=== PATIENT | male | born 1950 | race Caucasian/White ===

== ENCOUNTER 2016-09-07 14:17 | Inpatient (IN) | payer OTHER, MEDICARE ==
[2016-09-07] MEDS: Sodium Chloride 0.9% 1,000 ML IV SCH ×2 (16:18→21:12)
[2016-09-07] MEDS ORDERED: Lidocaine 2% Jelly 5 ML Urojet MUCMEM ONE (16:45)
--- NOTE | 2016-09-07 17:02 | US ---
INDICATION: Acute renal insufficiency. ULTRASOUND RENAL COMPLETE: Multiple ultrasonic images revealed the kidneys to measure on the right 12.1 x 6.1 x 7.8 cm, and on the left 11.4 x 5.2 x 5.3 cm. There is hydronephrosis bilaterally, which appears fairly severe. Likely this is on the basis of distal obstructive process such as at the urinary bladder outlet. This should be correlated clinically. Within the renal pelvis on the right, there is echogenic material which does not show blood flow. This may represent blood clots and should be correlated clinically. It is difficult to entirely exclude a neoplastic process; however, since no blood flow is present within it, likely it represents either nonviable tissue or hematoma. CT without and with contrast may certainly be of further diagnostic benefit, as a lobulated appearance of this somewhat echogenic material could represent neoplasia with very low blood flow. The renal cortices appear to be fairly well maintained bilaterally. The urinary bladder was not imaged apparently due to it being empty at the time of the examination. Blood flow at the kidneys is similar bilaterally. IMPRESSION: 1. Hydronephrosis is bilateral and appears fairly severe. 2. Soft tissue mass appears to be present with a lobulated appearance in the right renal pelvis. Neoplasia is difficult to exclude with this appearance, although no interior blood flow was seen. CT examination or possibly MRI may be warranted, depending upon clinical correlation and patients renal status - creatinine and GFR. Report was called to Dr. Tang at 1600 hours, 09/07/2016. [facility]
[2016-09-07] MEDS ORDERED: Non-Formulary Medication 1 Each (Ibuprofen [Advil] 200 MG) PO SCH ×2 (19:30→20:45)
[2016-09-07] MEDS ORDERED: Non-Formulary Medication 1 Each (Ibuprofen [Advil] 200 MG) PO PRN (20:37)
--- NOTE | 2016-09-07 20:56 | PCM.HP ---
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 He is a patient of Dr. Tang and his creatinine has been going up. Dr. Tang believes that he has lower renal retention or obstruction. Patient cannot feel his urination at this time. He is very weak and his doctor is worried about his swallowing. He feels that his swallowing okay. His also concurs as she feeds him slowly and chops up his food really well. - Related Data Allergies/Adverse Reactions: Allergies Allergy/AdvReac Type Severity Reaction Status Date / Time Penicillins Allergy UNKNOWN Verified 06/05/13 08:05 Home Medications: Home Meds Aspirin [Ecotrin] 81 mg PO DAILY PRN 06/05/13 [History] Ibuprofen [Advil] 200 mg PO ASDIRECTED PRN 06/05/13 [History] Sertraline HCl [Zoloft] 100 mg PO DAILY 06/05/13 [History] Ipratropium [place] 1 spray MARLYS BID 09/07/16 [History] Omeprazole [Omeprazole] 20 mg PO BID 09/07/16 [History] Terazosin HCl [Terazosin] 2 mg PO BEDTIME PRN 09/07/16 [History] Past Medical History Cardiovascular History: Reports: High Cholesterol, Hypertension Neurological History: Reports: Other (See Below) (Multiple system atrophy, cerebral ataxia) Psychiatric History: Reports: Depression - Past Surgical History Other HEENT Surgeries/Procedures: Tonsils and adenoids GI Surgical History: Reports: Appendectomy Social & Family History - Family History Family Medical History: Unobtainable H&P Review of Systems - Review of Systems: Review Of Systems: See Below General: Reports: Weakness HEENT: Reports: Other (Unable to speak well) Pulmonary: Reports: No Symptoms Cardiovascular: Reports: No Symptoms Gastrointestinal: Reports: No Symptoms Genitourinary: Reports: Retention. Denies: Dysuria, Pain, Urgency, Hematuria Skin: Reports: No Symptoms Psychiatric: Reports: No Symptoms Neurological: Reports: Trouble Speaking, Difficulty Walking, Weakness, Change in Speech Hematologic/Lymphatic: Reports: No Symptoms Immunologic: Reports: No Symptoms Exam - Exam Exam: See Below - Vital Signs Vital Signs: Last Vital Signs Temp 98.7 F 09/07/16 20:00 Pulse 82 09/07/16 20:00 Resp 18 09/07/16 20:00 BP 136/70 09/07/16 20:00 Pulse Ox 95 09/07/16 20:00 Weight: 216 lb - Exam General: Alert, Oriented, Cooperative HEENT: PERRLA, Hearing Intact, Posterior Pharynx Clear, TMs Clear Neck: Supple, Trachea Midline Lungs: Clear to Auscultation, Normal Respiratory Effort. No: Crackles, Rales, Rhonchi Cardiovascular: Regular Rate, Regular Rhythm, Normal S1, Normal S2. No: Bradycardia, Tachycardia, Systolic Murmur, Diastolic Murmur Abdomen: Normal Bowel Sounds, Soft. No: Peritoneal Signs, Distention, Guarding Back Exam: Normal Inspection Extremities: Other (Slow moving and weak all extremities.) Skin: Warm, Dry, Intact Neurological: Strength Equal Bilateral (But weak), Abnormal Gait. No: Normal Speech Neuro Extensive - Mental Status: Alert, Oriented x3, Normal Mood/Affect, Normal Cognition Neuro Extensive - Motor, Sensory, Reflexes: No: Normal Gait Psychiatric: Alert, Normal Affect, Normal Mood - Patient Data Lab Results last 24 hrs: Urine culture in the clinic is positive for Acetobacter that sensitiveness to Cipro *Q Meaningful Use (ADM) - VTE *Q VTE Criteria *Q: - Stroke *Q Stroke Criteria *Q: - AMI *Q AMI Criteria *Q: - Problem List (1) Acute renal failure SNOMED Code(s): 10892242 ICD Code: N17.9 - ACUTE KIDNEY FAILURE, UNSPECIFIED Status: Acute Current Visit: Yes (2) UTI (urinary tract infection) SNOMED Code(s): 13494368 ICD Code: N39.0 - URINARY TRACT INFECTION, SITE NOT SPECIFIED Status: Acute Current Visit: Yes (3) Multiple system atrophy SNOMED Code(s): 295887517 ICD Code: G23.9 - DEGENERATIVE DISEASE OF BASAL GANGLIA, UNSPECIFIED Status : Acute Current Visit: Yes Problem List Initiated/Reviewed/Updated: Yes Orders Last 24hrs: Active Orders 24 hr Category Date Time Status Bladder Scan [RC] ONETIME Care 09/07/16 14:32 Active Intake and Output [RC] QSHIFT Care 09/07/16 19:16 Active Oxygen Therapy [RC] PRN Care 09/07/16 19:16 Active Up to Chair [RC] ASDIRECTED Care 09/07/16 19:16 Active VTE/DVT Education [RC] Per Unit Routine Care 09/07/16 19:16 Active Vital Signs [RC] Q4H Care 09/07/16 19:16 Active Consult to Breaker Tender [CONS] Routine Cons 09/07/16 14:40 Active MANAGEMENT ENGINEER Evaluation and Treatment [CONS] Routine Cons 09/07/16 14:40 Active Full Liquid Diet [DIET] Diet 09/07/16 Dinner Ordered Mechanical Soft Diet [DIET] Diet 09/08/16 Breakfast Active CBC WITH AUTO DIFF [HEME] AM Lab 09/08/16 05:11 Ordered COMPREHENSIVE METABOLIC PN,CMP [CHEM] AM Lab 09/08/16 05:11 Ordered CULTURE BLOOD [BC] Urgent Lab 09/07/16 19:20 Received CULTURE BLOOD [BC] Urgent Lab 09/07/16 19:30 Received Aspirin [Halfprin] Med 09/08/16 09:00 Active 81 mg PO DAILY Ciprofloxacin [Ciprofloxacin HCl] Med 09/08/16 09:00 Active 250 mg PO DAILY Ibuprofen [Advil] Med 09/07/16 20:37 Pending 200 mg PO Q6H PRN Ipratropium [Atrovent 0.06% Nasal [place]] Med 09/07/16 21:00 Ordered DOSE ml MARLYS BID Omeprazole Med 09/07/16 21:00 Ordered 20 mg PO BID Sertraline [Zoloft] Med 09/08/16 09:00 Active 100 mg PO DAILY Sodium Chloride 0.9% [Normal Saline] 1,000 ml Med 09/07/16 14:45 Active IV ASDIRECTED Terazosin [Hytrin] Med 09/07/16 20:37 Ordered 2 mg PO BEDTIME PRN Blood Culture x2 Reflex Set [OM.PC] Urgent Oth 09/07/16 19:16 Ordered Resuscitation Status Routine Resus Stat 09/07/16 19:16 Ordered Medication Orders Aspirin (Halfprin) 81 mg PO DAILY JEANMARIE Ciprofloxacin (Ciprofloxacin Hcl) 250 mg PO DAILY JEANMARIE Sodium Chloride (Normal Saline) 1,000 mls @ 150 mls/hr IV ASDIRECTED JEANMARIE Last Admin: 09/07/16 16:18 Dose: 200 mls/hr Ipratropium [place] (Atrovent 0.06% Nasal [place]) ml MARLYS BID JEANMARIE Non-Formulary Medication (Ibuprofen [Advil]) 200 mg PO Q6H PRN PRN Reason: Pain Omeprazole (Omeprazole) 20 mg PO BID JEANMARIE Sertraline HCl (Zoloft) 100 mg PO DAILY JEANMARIE Terazosin HCl (Hytrin) 2 mg PO BEDTIME PRN PRN Reason: Insomnia Assessment/Plan Comment:: 1. Check residual urine. 2. If it's Elevated place Chavez catheter. 3. Renal ultrasound. 4. Clear liquids. 5. Swallowing study. 6. Discussed living will. He was DNR/DNI. 7. Recheck renal function and CBC in the a.m.
[2016-09-07] MEDS ORDERED: atorvaSTATin 40 MG Tab PO SCH (21:00)
[2016-09-07] MEDS: Omeprazole 20 MG Cap.CR PO SCH (21:24)
[2016-09-07] MEDS: Ipratropium 0.06% Nasal Spray 15 ML Bottle NAS SCH (22:29)
[2016-09-08] MEDS: Sodium Chloride 0.9% 1,000 ML IV SCH (05:16)
[2016-09-08] MEDS: Omeprazole 20 MG Cap.CR PO SCH ×2 (06:40→17:38)
[2016-09-08] MEDS: Ciprofloxacin 250 MG Tab PO SCH (08:53)
[2016-09-08] MEDS: Sertraline 100 MG Tab PO SCH (08:53)
[2016-09-08] MEDS: Ipratropium 0.06% Nasal Spray 15 ML Bottle NAS SCH ×2 (08:53→20:41)
[2016-09-08] MEDS ORDERED: DHA PO SCH (09:00)
[2016-09-08] MEDS ORDERED: Non-Formulary Medication 1 Each (Multivitamin With Minerals [Multiple Vitamin] 1 TAB) PO SCH (09:00)
[2016-09-08] MEDS ORDERED: Non-Formulary Medication 1 Each (Cinnamon Bark [Cinnamon] 500 MG) PO SCH (09:00)
[2016-09-08] MEDS ORDERED: OMEGA PO SCH (09:00)
[2016-09-08] MEDS ORDERED: Cyanocobalamin (Vitamin B12) 1,000 MCG Tab PO SCH (09:00)
[2016-09-08] MEDS ORDERED: EPA PO SCH (09:00)
[2016-09-08] MEDS ORDERED: Aspirin 81 MG Tab.EC PO SCH (09:00)
[2016-09-08] MEDS ORDERED: FISH OIL PO SCH (09:00)
[2016-09-08] MEDS ORDERED: SAW PALMETTO 1000 MG PO SCH (09:00)
[2016-09-08] MEDS ORDERED: [UNRECOGNIZED DRUG - OTHER] PO SCH (09:00)
[2016-09-08] MEDS ORDERED: LUTEIN PO SCH (09:00)
[2016-09-08] MEDS: Dextrose 5%-0.45% NaCl 1,000 ML IV SCH ×2 (09:11→17:14)
--- NOTE | 2016-09-08 09:15 | PCM.PN ---
- General Info Date of Service: 09/08/16 Admission Dx/Problem (Free Text): Patient has no complaints today. He denies chest pain, fevers, chills, abdominal pain. - Patient Data Vitals - most recent: Last Vital Signs Temp 97.8 F 09/08/16 04:00 Pulse 84 09/08/16 04:00 Resp 18 09/08/16 04:00 BP 120/60 09/08/16 04:00 Pulse Ox 96 09/08/16 04:00 Weight - most recent: 152 lb 12.8 oz I&O - last 24 hours: Intake & Output 09/07/16 09/08/16 09/08/16 22:59 06:59 14:59 Intake Total 1775 1175 Output Total 2800 1800 Balance -1025 -625 Lab Results last 24 hrs: Laboratory Results - last 24 hr 09/08/16 09/08/16 Range/Units 06:10 06:10 WBC 8.0 (4.5-12.0) X10-3/uL RBC 3.20 L (4.30-5.75) x10(6)uL Hgb 9.1 L (11.5-15.5) g/dL Hct 26.7 L (30.0-51.3) % MCV 83.3 (80-96) fL MCH 28.3 (27.7-33.6) pg MCHC 34.0 (32.2-35.4) g/dL RDW 12.3 (11.5-15.5) % Plt Count 477 H (125-369) X10(3)uL MPV 6.1 L (7.4-10.4) fL Neut % (Auto) 75.7 (46-82) % Lymph % (Auto) 16.6 (13-37) % [place] % (Auto) 6.3 (4-12) % Eos % (Auto) 1 (1.0-5.0) % Baso % (Auto) 0 (0-2) % Neut # (Auto) 6.1 (1.6-8.3) # Lymph # (Auto) 1.3 (0.6-5.0) # [place] # (Auto) 0.5 (0.0-1.3) # Eos # (Auto) 0.1 (0.0-0.8) # Baso # (Auto) 0.0 (0.0-0.2) # Sodium 135 (135-145) mmol/L Potassium 4.5 (3.5-5.3) mmol/L Chloride 106 (100-110) mmol/L Carbon Dioxide 19 L (23-29) mmol/L BUN 68 H (8-23) mg/dL Creatinine 3.2 H* (0.6-1.3) mg/dL Est Cr Clr Drug Dosing 22.56 mL/min Estimated GFR (MDRD) 20 L (>60) BUN/Creatinine Ratio 21.3 H (9-20) Glucose 96 (80-116) mg/dL Calcium 8.5 L (8.6-10.2) mg/dL Total Bilirubin 0.4 (0.1-1.3) mg/dL AST 10 (5-27) IU/L ALT 18 (14-26) IU/L Alkaline Phosphatase 69 (56-112) IU/L Total Protein 6.2 (6.0-8.0) g/dL Albumin 2.9 L (3.2-4.6) g/dL Globulin 3.3 g/dL Albumin/Globulin Ratio 0.9 Med Orders - Current: Current Medications Aspirin (Halfprin) 81 mg PO DAILY [facility] Last Admin: 09/08/16 08:54 Dose: Not Given Ciprofloxacin (Ciprofloxacin Hcl) 250 mg PO DAILY [facility] Last Admin: 09/08/16 08:53 Dose: 250 mg Dextrose/Sodium Chloride (Dextrose 5%-1/2 Ns) 1,000 mls @ 125 mls/hr IV ASDIRECTED [facility] Last Admin: 09/08/16 09:11 Dose: 125 mls/hr Ipratropium [place] (Atrovent 0.06% Nasal [place]) 0 ml MARLYS BID [facility] Last Admin: 09/08/16 08:53 Dose: 1 spray Omeprazole (Omeprazole) 20 mg PO BIDAC [facility] Last Admin: 09/08/16 06:40 Dose: 20 mg Sertraline HCl (Zoloft) 100 mg PO DAILY [facility] Last Admin: 09/08/16 08:53 Dose: 100 mg Terazosin HCl (Hytrin) 2 mg PO BEDTIME PRN PRN Reason: Other Discontinued Medications Sodium Chloride (Normal Saline) 1,000 mls @ 125 mls/hr IV ASDIRECTED [facility] Last Admin: 09/08/16 05:16 Dose: 125 mls/hr Lidocaine HCl (Xylocaine 2% Jelly) 5 ml MUCMEM ONETIME ONE Stop: 09/07/16 16:46 Last Admin: 09/07/16 16:30 Dose: 5 ml - Exam General: alert, oriented Neck: supple Lungs: Normal respiratory effort Extremities: no edema - Problem List & Annotations (1) Acute renal failure SNOMED Code(s): 80691056 Code(s): N17.9 - ACUTE KIDNEY FAILURE, UNSPECIFIED Status: Acute Current Visit: Yes Annotation/Comment:: Post renal (2) UTI (urinary tract infection) SNOMED Code(s): 74020916 Code(s): N39.0 - URINARY TRACT INFECTION, SITE NOT SPECIFIED Status: Acute Current Visit: Yes (3) Multiple system atrophy SNOMED Code(s): 611511462 Code(s): G23.9 - DEGENERATIVE DISEASE OF BASAL GANGLIA, UNSPECIFIED Status : Acute Current Visit: Yes - Problem List Review Problem List Initiated/Reviewed/Updated: Yes - My Orders Last 24 Hours: My Active Orders 09/07/16 19:16 Intake and Output [RC] 06,14,22 Oxygen Therapy [RC] PRN Up to Chair [RC] ASDIRECTED VTE/DVT Education [RC] Per Unit Routine Vital Signs [RC] Q4H Blood Culture x2 Reflex Set [OM.PC] Urgent Resuscitation Status Routine 09/07/16 19:20 CULTURE BLOOD [BC] Urgent 09/07/16 19:30 CULTURE BLOOD [BC] Urgent 09/07/16 20:37 Terazosin [Hytrin] 2 mg PO BEDTIME PRN 09/07/16 21:00 Ipratropium [Atrovent 0.06% Nasal [place]] 0 ml MARLYS BID Omeprazole 20 mg PO BIDAC 09/08/16 09:00 Aspirin [Halfprin] 81 mg PO DAILY Sertraline [Zoloft] 100 mg PO DAILY 09/08/16 09:15 Dextrose 5%-0.45% NaCl [Dextrose 5%-1/2 NS] 1,000 ml IV ASDIRECTED 09/09/16 06:00 BASIC METABOLIC PANEL,BMP [CHEM] AM - Assessment Assessment:: 1. Continue Cipro 2. Change IV fluids to D5 half normal at 125 mL an hour. 3. BMP in the morning. 4. Patient and his do not want a swallowing study. So we will stop the swallowing study in the continue the soft mechanical diet. - Plan Plan:: 1. Check residual urine. 2. If it's Elevated place Chavez catheter. 3. Renal ultrasound. 4. Clear liquids. 5. Swallowing study. 6. Discussed living will. He was DNR/DNI. 7. Recheck renal function and CBC in the a.m.
[2016-09-08] MEDS ORDERED: Aspirin 81 MG Tab.EC PO PRN (13:56)
[2016-09-09] MEDS: Dextrose 5%-0.45% NaCl 1,000 ML IV SCH (01:16)
[2016-09-09] MEDS: Omeprazole 20 MG Cap.CR PO SCH (06:32)
[2016-09-09] MEDS: Ciprofloxacin 250 MG Tab PO SCH (08:51)
[2016-09-09] MEDS: Ipratropium 0.06% Nasal Spray 15 ML Bottle NAS SCH (08:51)
[2016-09-09] MEDS: Sertraline 100 MG Tab PO SCH (08:51)
--- NOTE | 2016-09-09 09:19 | PCM.PN ---
- General Info Date of Service: 09/09/16 Admission Dx/Problem (Free Text): Patient and his are without concerns. He's feeling better and has more of an appetite. Denies fevers, chills, abdominal pain. - Patient Data Vitals - most recent: Last Vital Signs Temp 98.1 F 09/09/16 05:00 Pulse 79 09/09/16 05:00 Resp 20 09/09/16 05:00 BP 138/65 09/09/16 05:00 Pulse Ox 96 09/09/16 05:00 Weight - most recent: 152 lb 12.8 oz I&O - last 24 hours: Intake & Output 09/08/16 09/09/16 09/09/16 22:59 06:59 14:59 Intake Total 1509 866 100 Output Total 1800 1250 Balance -291 866 -1150 Lab Results last 24 hrs: Laboratory Results - last 24 hr 09/09/16 Range/Units 06:15 Sodium 136 (135-145) mmol/L Potassium 4.3 (3.5-5.3) mmol/L Chloride 107 (100-110) mmol/L Carbon Dioxide 22 L (23-29) mmol/L BUN 50 H D (8-23) mg/dL Creatinine 2.7 H* (0.6-1.3) mg/dL Est Cr Clr Drug Dosing 26.74 mL/min Estimated GFR (MDRD) 24 L (>60) BUN/Creatinine Ratio 18.5 (9-20) Glucose 113 (80-116) mg/dL Calcium 8.6 (8.6-10.2) mg/dL Shankar Results last 24 hrs: Microbiology 09/07/16 19:30 Aerobic Blood Culture - Preliminary Blood - Venous - Lab Draw NO GROWTH AFTER 1 DAY Anaerobic Blood Culture - Preliminary NO GROWTH AFTER 1 DAY 09/07/16 19:20 Aerobic Blood Culture - Preliminary Blood - Venous NO GROWTH AFTER 1 DAY Anaerobic Blood Culture - Preliminary NO GROWTH AFTER 1 DAY Med Orders - Current: Current Medications Aspirin (Halfprin) 81 mg PO DAILY PRN PRN Reason: Pain Ciprofloxacin (Ciprofloxacin Hcl) 250 mg PO DAILY [facility] Last Admin: 09/09/16 08:51 Dose: 250 mg Dextrose/Sodium Chloride (Dextrose 5%-1/2 Ns) 1,000 mls @ 125 mls/hr IV ASDIRECTED [facility] Last Admin: 09/09/16 01:16 Dose: 125 mls/hr Ipratropium [place] (Atrovent 0.06% Nasal [place]) 0 ml MARLYS BID [facility] Last Admin: 09/09/16 08:51 Dose: 1 spray Omeprazole (Omeprazole) 20 mg PO BIDAC [facility] Last Admin: 09/09/16 06:32 Dose: 20 mg Sertraline HCl (Zoloft) 100 mg PO DAILY [facility] Last Admin: 09/09/16 08:51 Dose: 100 mg Terazosin HCl (Hytrin) 2 mg PO BEDTIME [facility] Last Admin: 09/08/16 20:41 Dose: 2 mg Discontinued Medications Aspirin (Halfprin) 81 mg PO DAILY [facility] Last Admin: 09/08/16 08:54 Dose: Not Given Sodium Chloride (Normal Saline) 1,000 mls @ 125 mls/hr IV ASDIRECTED [facility] Last Admin: 09/08/16 05:16 Dose: 125 mls/hr Lidocaine HCl (Xylocaine 2% Jelly) 5 ml MUCMEM ONETIME ONE Stop: 09/07/16 16:46 Last Admin: 09/07/16 16:30 Dose: 5 ml Terazosin HCl (Hytrin) 2 mg PO BEDTIME PRN PRN Reason: Other - Exam General: alert, oriented, severe distress Lungs: Normal respiratory effort Extremities: no edema - Problem List & Annotations (1) Acute renal failure SNOMED Code(s): 70611183 Code(s): N17.9 - ACUTE KIDNEY FAILURE, UNSPECIFIED Status: Acute Current Visit: Yes Annotation/Comment:: Post renal (2) UTI (urinary tract infection) SNOMED Code(s): 24245970 Code(s): N39.0 - URINARY TRACT INFECTION, SITE NOT SPECIFIED Status: Acute Current Visit: Yes (3) Multiple system atrophy SNOMED Code(s): 397955265 Code(s): G23.9 - DEGENERATIVE DISEASE OF BASAL GANGLIA, UNSPECIFIED Status : Acute Current Visit: Yes - Problem List Review Problem List Initiated/Reviewed/Updated: Yes - My Orders Last 24 Hours: My Active Orders 09/08/16 09:00 Sertraline [Zoloft] 100 mg PO DAILY 09/08/16 09:15 Dextrose 5%-0.45% NaCl [Dextrose 5%-1/2 NS] 1,000 ml IV ASDIRECTED 09/08/16 13:56 Aspirin [Halfprin] 81 mg PO DAILY PRN 09/08/16 21:00 Terazosin [Hytrin] 2 mg PO BEDTIME - Assessment Assessment:: 1. discharge home with Chavez catheter in place. 2. Recheck with Dr. Moreno or Dr. Moreno or Dr Tang in one week with a panel 8 before the appointment. - Plan Plan:: 1. Check residual urine. 2. If it's Elevated place Chavez catheter. 3. Renal ultrasound. 4. Clear liquids. 5. Swallowing study. 6. Discussed living will. He was DNR/DNI. 7. Recheck renal function and CBC in the a.m.
--- NOTE | 2016-09-09 09:45 | PCM.DCSUM1 ---
Discharge Summary - Hospital Course Free Text/Narrative:: Hospital course-patient had a Chavez catheter placed and had lots of urine. He had residuals of 999 cc on bladder scan before his Chavez was placed. His creatinine dropped the next 2 days #2.7 from 3.8. He felt much better. He had a UTI and was placed on Cipro. He is on a soft mechanical diet. He is a little anemic and he had a little bit hematuria. We'll discharge him home have him come back in one week revisit with a BMP. He'll go home with a Chavez catheter in place. Home health will be ordered also. 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 He is a patient of Dr. Tang and his creatinine has been going up. Dr. Tang believes that he has lower renal retention or obstruction. Patient cannot feel his urination at this time. He is very weak and his doctor is worried about his swallowing. He feels that his swallowing okay. His also concurs as she feeds him slowly and chops up his food really well. - Discharge Data Discharge Date: 09/09/16 Discharge Disposition: Home, W Home Health Agency 06 Condition: Fair - Discharge Diagnosis/Problem(s) (1) Acute renal failure SNOMED Code(s): 36181830 ICD Code: N17.9 - ACUTE KIDNEY FAILURE, UNSPECIFIED Status: Acute Current Visit: Yes Problem Details: Post renal (2) UTI (urinary tract infection) SNOMED Code(s): 02403362 ICD Code: N39.0 - URINARY TRACT INFECTION, SITE NOT SPECIFIED Status: Acute Current Visit: Yes (3) Multiple system atrophy SNOMED Code(s): 352029276 ICD Code: G23.9 - DEGENERATIVE DISEASE OF BASAL GANGLIA, UNSPECIFIED Status : Acute Current Visit: Yes - Patient Summary/Data Consults: Consultations 09/07/16 14:40 Consult to Die Fitter [CONS] Routine Comment: Physician Instructions: Reason for Consult: discharge planning - Patient Instructions Diet: Mechanical Soft Activity, Other: Wheelchair Driving: Do Not Drive Showering/Bathing: May Shower Notify Provider of: Fever, Increased Pain, Nausea and/or Vomiting Other/Special Instructions: 1. Check with Dr. Moreno in 1 week with a panel 8 before the visit. 2. Indwelling Chavez catheter. Please advise patient on catheter care. 3. Urology appointment outpatient. I will make that appointment. 4. Home health for teaching, home safety, medical management after surveillance and teaching. - Discharge Plan Prescriptions/Med Rec: Ciprofloxacin [Ciprofloxacin HCl] 250 mg PO DAILY #16 tablet Home Medications: Home Meds Aspirin [Ecotrin] 81 mg PO DAILY PRN 06/05/13 [History] Ibuprofen [Advil] 200 mg PO Q4H PRN 06/05/13 [History] Sertraline HCl [Zoloft] 100 mg PO DAILY 06/05/13 [History] Ipratropium [place] 1 spray MARLYS BID 09/07/16 [History] Omeprazole 20 mg PO BID 09/07/16 [History] Terazosin HCl [Terazosin] 2 mg PO BEDTIME PRN 09/07/16 [History] Ciprofloxacin [Ciprofloxacin HCl] 250 mg PO DAILY #16 tablet 09/09/16 [Rx] - Discharge Summary/Plan Comment DC Time >30 min.: No - Patient Data Vitals - Most Recent: Last Vital Signs Temp 98.1 F 09/09/16 05:00 Pulse 79 09/09/16 05:00 Resp 20 09/09/16 05:00 BP 138/65 09/09/16 05:00 Pulse Ox 96 09/09/16 05:00 Weight - Most Recent: 152 lb 12.8 oz I&O - Last 24 hours: Intake & Output 09/08/16 09/09/16 09/09/16 22:59 06:59 14:59 Intake Total 1509 866 100 Output Total 1800 1250 Balance -291 866 -1150 Lab Results - Last 24 hrs: Laboratory Results - last 24 hr 09/09/16 Range/Units 06:15 Sodium 136 (135-145) mmol/L Potassium 4.3 (3.5-5.3) mmol/L Chloride 107 (100-110) mmol/L Carbon Dioxide 22 L (23-29) mmol/L BUN 50 H D (8-23) mg/dL Creatinine 2.7 H* (0.6-1.3) mg/dL Est Cr Clr Drug Dosing 26.74 mL/min Estimated GFR (MDRD) 24 L (>60) BUN/Creatinine Ratio 18.5 (9-20) Glucose 113 (80-116) mg/dL Calcium 8.6 (8.6-10.2) mg/dL MICHAEL Results - Last 24 hrs: Microbiology 09/07/16 19:30 Aerobic Blood Culture - Preliminary Blood - Venous - Lab Draw NO GROWTH AFTER 1 DAY Anaerobic Blood Culture - Preliminary NO GROWTH AFTER 1 DAY 09/07/16 19:20 Aerobic Blood Culture - Preliminary Blood - Venous NO GROWTH AFTER 1 DAY Anaerobic Blood Culture - Preliminary NO GROWTH AFTER 1 DAY Med Orders - Current: Current Medications Aspirin (Halfprin) 81 mg PO DAILY PRN PRN Reason: Pain Ciprofloxacin (Ciprofloxacin Hcl) 250 mg PO DAILY [facility] Last Admin: 09/09/16 08:51 Dose: 250 mg Dextrose/Sodium Chloride (Dextrose 5%-1/2 Ns) 1,000 mls @ 125 mls/hr IV ASDIRECTED [facility] Last Admin: 09/09/16 01:16 Dose: 125 mls/hr Ipratropium [place] (Atrovent 0.06% Nasal [place]) 0 ml MARLYS BID [facility] Last Admin: 09/09/16 08:51 Dose: 1 spray Omeprazole (Omeprazole) 20 mg PO BIDAC [facility] Last Admin: 09/09/16 06:32 Dose: 20 mg Sertraline HCl (Zoloft) 100 mg PO DAILY [facility] Last Admin: 09/09/16 08:51 Dose: 100 mg Terazosin HCl (Hytrin) 2 mg PO BEDTIME [facility] Last Admin: 09/08/16 20:41 Dose: 2 mg Discontinued Medications Aspirin (Halfprin) 81 mg PO DAILY [facility] Last Admin: 09/08/16 08:54 Dose: Not Given Sodium Chloride (Normal Saline) 1,000 mls @ 125 mls/hr IV ASDIRECTED [facility] Last Admin: 09/08/16 05:16 Dose: 125 mls/hr Lidocaine HCl (Xylocaine 2% Jelly) 5 ml MUCMEM ONETIME ONE Stop: 09/07/16 16:46 Last Admin: 09/07/16 16:30 Dose: 5 ml Terazosin HCl (Hytrin) 2 mg PO BEDTIME PRN PRN Reason: Other *Q Meaningful Use (DIS) - VTE *Q VTE Criteria *Q: - Stroke *Q Stroke Criteria *Q: - AMI *Q AMI Criteria *Q:
[2016-09-09 11:17] VITALS: BP 114/59
== END 2016-09-09 13:50 | disposition home health service (06) | DRG 690 ==
LOC: FB.MS 14:46
PROVIDERS: ADMIT Family Medicine; ATTEND Family Medicine
DX: N39.0 Urinary tract infection, site not specified (principal); N17.9 Acute kidney failure, unspecified; G23.9 Degenerative disease of basal ganglia, unspecified; D64.9 Anemia, unspecified; Z79.82 Long term (current) use of aspirin; F32.9 Major depressive disorder, single episode, unspecified; I10 Essential (primary) hypertension; E78.00 Pure hypercholesterolemia, unspecified; Z66 Do not resuscitate; R13.10 Dysphagia, unspecified
CPT/HCPCS: 36415; 76770; 80048; 80053; 85025; 87040; A9270-GY; J7040

== ENCOUNTER 2017-01-04 20:50 | Emergency (ER) | payer OTHER ==
--- NOTE | 2017-01-04 21:47 | EDM.PDOC ---
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 There was blood not only in his replaced suprapubic catheter but also blood coming from his urethra. Pt denies pain, N/V/D, dizziness or any other acute medical issue. Onset: Today Onset Date: 01/04/17 Onset Time: 15:00 Duration: Hour(s): - Related Data Allergies Allergy/AdvReac Type Severity Reaction Status Date / Time Penicillins Allergy UNKNOWN Verified 01/04/17 21:43 Home Meds: Home Meds Sertraline HCl [Zoloft] 100 mg PO DAILY 06/05/13 [History] Omeprazole 20 mg PO BID 09/07/16 [History] Past Medical History HEENT History: Reports: Other (See Below) Other HEENT History: astigmatism,hypermetropia Cardiovascular History: Reports: High Cholesterol, Hypertension Gastrointestinal History: Reports: GERD Genitourinary History: Reports: Neurogenic Bladder, Urinary Incontinence Musculoskeletal History: Reports: Other (See Below) Other Musculoskeletal History: multi system atrophy Neurological History: Reports: Other (See Below) (Multiple system atrophy, cerebral ataxia) Other Neuro History: multiple system atrophy, cerebellar ataxia, ulnar neuropathy, Parkinsonism, Polyneuropathy Psychiatric History: Reports: Depression - Infectious Disease History Infectious Disease History: Reports: Chicken Pox, Measles, Mumps - Past Surgical History Other HEENT Surgeries/Procedures: Tonsils and adenoids GI Surgical History: Reports: Appendectomy Social & Family History - Family History Family Medical History: Unobtainable - Tobacco Use Smoking Status *Q: Never Smoker - Caffeine Use Caffeine Use: Reports: Coffee - Recreational Drug Use Recreational Drug Use: No ED ROS GENERAL - Review of Systems Review Of Systems: See Below Constitutional: Reports: No Symptoms HEENT: Reports: No Symptoms Respiratory: Reports: No Symptoms Cardiovascular: Reports: No Symptoms Endocrine: Reports: No Symptoms GI/Abdominal: Reports: No Symptoms : Reports: Hematuria (from the suprapubic cather and penis) Musculoskeletal: Reports: Other (generalized athrophy) Skin: Reports: No Symptoms Neurological: Reports: Other (MSA) Psychiatric: Reports: No Symptoms Hematologic/Lymphatic: Reports: No Symptoms Immunologic: Reports: No Symptoms ED EXAM, RENAL/ - Physical Exam Exam: See Below Exam Limited By: Physical Impairment General Appearance: Alert, WD/WN, Thin Eye Exam: Bilateral Eye: Normal Inspection Ears: Normal External Exam Nose: Normal Inspection Throat/Mouth: Normal Inspection Head: Atraumatic Neck: Normal Inspection Respiratory/Chest: No Respiratory Distress, Lungs Clear Cardiovascular: Normal Peripheral Pulses GI/Abdominal: Normal Bowel Sounds (Male) Exam: Deferred Rectal (Males) Exam: Deferred Back Exam: Normal Inspection Extremities: Other (atrophic) Neurological: Alert, CN II-XII Intact, Abnormal Gait Psychiatric: Normal Affect, Normal Mood Skin Exam: Warm Lymphatic: No Adenopathy Course - Vital Signs Text/Narrative:: 66 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 There was blood not only in his replaced suprapubic catheter but also blood coming from his urethra. Pt denies pain, N/V/D, dizziness or any other acute medical issue. Pt dose not take blood thinners. PE: Generalized body atrophy, cachectic with hematuria (penis and suprapubic catheter) Impression: Suprapubic catheter change, hematuria Procedure: The old suprapubic catheter was deflated, the insertion area was irrigated with betediene, vasoline was applied the orifice and the new catheter was inserted under sterile condition without complication. The penile bleeding stopped then. [id number] Dr. Fish, Urologist, [place]: Cause for the bleeding from the Urethra was, most likely- the initial suprapubic catheter was pushed through the prostate and urethra. Now, the new Suprapubic catheter is out of the prostate and Urethra, the bleeding should stop. Transfer to [facility] not indicated. Labs: pending on pt's D/C Reeam: Improved, urine from the new suprapubic cather was clean, hematuria subsided. Plan: D/C with instructions. Last Recorded V/S: Last Vital Signs Temp 36.7 C 01/04/17 20:58 Pulse 76 01/04/17 22:00 Resp 17 01/04/17 22:00 BP 136/76 01/04/17 22:00 Pulse Ox 99 01/04/17 22:00 - Orders/Labs/Meds Labs: Laboratory Tests 01/04/17 01/04/17 01/04/17 Range/Units 22:00 22:00 22:00 WBC 10.8 (4.5-12.0) X10-3/uL RBC 4.23 L (4.30-5.75) x10(6)uL Hgb 12.0 (11.5-15.5) g/dL Hct 35.6 (30.0-51.3) % MCV 84.3 (80-96) fL MCH 28.5 (27.7-33.6) pg MCHC 33.8 (32.2-35.4) g/dL RDW 13.5 (11.5-15.5) % Plt Count 214 (125-369) X10(3)uL MPV 7.7 (7.4-10.4) fL Neut % (Auto) 65.0 (46-82) % Lymph % (Auto) 18.1 (13-37) % [place] % (Auto) 7.7 (4-12) % Eos % (Auto) 9 H (1.0-5.0) % Baso % (Auto) 0 (0-2) % Neut # (Auto) 7.1 (1.6-8.3) # Lymph # (Auto) 1.9 (0.6-5.0) # [place] # (Auto) 0.8 (0.0-1.3) # Eos # (Auto) 1.0 H (0.0-0.8) # Baso # (Auto) 0.0 (0.0-0.2) # PT 11.3 H (8.7-11.1) INR 1.12 (0.89-1.13) Sodium 136 (135-145) mmol/L Potassium 4.2 (3.5-5.3) mmol/L Chloride 103 (100-110) mmol/L Carbon Dioxide 26 (23-29) mmol/L BUN 39 H (8-23) mg/dL Creatinine 1.8 H (0.6-1.3) mg/dL Est Cr Clr Drug Dosing 39.37 mL/min Estimated GFR (MDRD) 38 L (>60) BUN/Creatinine Ratio 21.7 H (9-20) Glucose 105 (80-116) mg/dL Calcium 8.9 (8.6-10.2) mg/dL Urine Color (YELLOW) Urine Appearance (CLEAR) Urine pH (5.0-6.5) Ur Specific [place] (1.010-1.025) Urine Protein (NEGATIVE) mg/dL Urine Glucose (UA) (NEGATIVE) mg/dL Urine Ketones (NEGATIVE) mg/dL Urine Occult Blood (NEGATIVE) Urine Nitrite (NEGATIVE) Urine Bilirubin (NEGATIVE) Urine Urobilinogen (NEGATIVE) mg/dL Ur Leukocyte Esterase (NEGATIVE) 01/04/17 Range/Units 22:20 WBC (4.5-12.0) X10-3/uL RBC (4.30-5.75) x10(6)uL Hgb (11.5-15.5) g/dL Hct (30.0-51.3) % MCV (80-96) fL MCH (27.7-33.6) pg MCHC (32.2-35.4) g/dL RDW (11.5-15.5) % Plt Count (125-369) X10(3)uL MPV (7.4-10.4) fL Neut % (Auto) (46-82) % Lymph % (Auto) (13-37) % [place] % (Auto) (4-12) % Eos % (Auto) (1.0-5.0) % Baso % (Auto) (0-2) % Neut # (Auto) (1.6-8.3) # Lymph # (Auto) (0.6-5.0) # [place] # (Auto) (0.0-1.3) # Eos # (Auto) (0.0-0.8) # Baso # (Auto) (0.0-0.2) # PT (8.7-11.1) INR (0.89-1.13) Sodium (135-145) mmol/L Potassium (3.5-5.3) mmol/L Chloride (100-110) mmol/L Carbon Dioxide (23-29) mmol/L BUN (8-23) mg/dL Creatinine (0.6-1.3) mg/dL Est Cr Clr Drug Dosing mL/min Estimated GFR (MDRD) (>60) BUN/Creatinine Ratio (9-20) Glucose (80-116) mg/dL Calcium (8.6-10.2) mg/dL Urine Color Yellow (YELLOW) Urine Appearance Slightly cloudy (CLEAR) Urine pH 6.0 (5.0-6.5) Ur Specific [place] 1.015 (1.010-1.025) Urine Protein 30 H (NEGATIVE) mg/dL Urine Glucose (UA) Normal (NEGATIVE) mg/dL Urine Ketones Negative (NEGATIVE) mg/dL Urine Occult Blood Large H (NEGATIVE) Urine Nitrite Negative (NEGATIVE) Urine Bilirubin Negative (NEGATIVE) Urine Urobilinogen Normal (NEGATIVE) mg/dL Ur Leukocyte Esterase Large H (NEGATIVE) Departure - Departure Time of Disposition: 22:13 Disposition: Home, Self-Care 01 Condition: Good Clinical Impression: Multisystem disorder Suprapubic catheter dysfunction Qualifiers: Encounter type: sequela Qualified Code(s): T83.010S - Breakdown (mechanical) of cystostomy catheter, sequela - Discharge Information Instructions: Suprapubic Catheter Replacement, Suprapubic Catheter Replacement , Care After, Suprapubic Catheter Home Guide Referrals: Junior Moreno MD [Primary Care Provider] - Forms: ED Department Discharge Additional Instructions: Please f/u with your PMD, come back to the ed if your symptoms get worse acutely.
[2017-01-04 22:45] VITALS: BP 136/76
== END 2017-01-04 22:27 | disposition home or self-care (01) ==
LOC: FB.ED 20:50
DX: T83.010 Breakdown (mechanical) of cystostomy catheter (principal); G90.3 Multi-system degeneration of the autonomic nervous system; E78.00 Pure hypercholesterolemia, unspecified; I10 Essential (primary) hypertension; K21.9 Gastro-esophageal reflux disease without esophagitis; F32.9 Major depressive disorder, single episode, unspecified; Z90.49 Acquired absence of other specified parts of digestive tract; Z88.0 Allergy status to penicillin; Z79.899 Other long term (current) drug therapy
CPT/HCPCS: 36415; 51702; 51705; 80048; 81003; 85025; 85610; 99283

== ENCOUNTER 2018-10-18 16:31 | Inpatient (IN) | payer OTHER, MEDICARE ==
[2018-10-18] MEDS ORDERED: Levofloxacin/Dextrose 5%-Water 750 MG in Premix Bag 1 BAG IV SCH (17:30)
[2018-10-18] MEDS: Sodium Chloride 0.9% 1,000 ML IV SCH ×2 (17:47→22:47)
[2018-10-18] MEDS ORDERED: Acetaminophen 325 MG Tab PO PRN (19:43)
--- NOTE | 2018-10-18 22:32 | EDM.PDOC ---
ED HPI GENERAL MEDICAL PROBLEM - General Chief Complaint: General Stated Complaint: PNEUMONIA Time Seen by Provider: 10/18/18 16:55 Source of Information: Reports: Patient, Family, Old Records History Limitations: Reports: Physical Impairment - History of Present Illness INITIAL COMMENTS - FREE TEXT/NARRATIVE: patient sent over from clinic with concern for hypoxia, decreased appetite, crackles in lungs. Hx multiple system atrophy, wheelchair bound, has suprapubic catheter. he is able to answer questions yes or no with thumbs-up and comes down but doesn't have a lot of other communication. is present and reports that yesterday around noon he started feeling unwell. She states that she and her daughter have both recently have some colds and so she gave a day to see if he would improve. He normally has some stridor with multiple system atrophy, but it didn't seem much worse today. Also she noticed some extra wheeze when she heard him breathing. She reports that he has not really had no appetite since yesterday, worse he normally eats everything. She has not noticed any fever, although there was report that he was maybe a little bit febrile over at the clinic, no official high temp was reported. He was found to be hypoxic to 88% over the clinic. Patient has not have had any abdominal pain, nausea or vomiting, back or flank pain. He has an indwelling suprapubic catheter which is likely colonized but has not had any pain around the site nor has a foul smell been noticed to his urine. His reports that she has not gotten any complaint that he is lightheaded or dizzy and he seems to be able to sit up without difficulty. - Related Data Allergies Allergy/AdvReac Type Severity Reaction Status Date / Time Penicillins Allergy UNKNOWN Verified 10/18/18 17:55 Home Meds: Home Meds Sertraline HCl [Zoloft] 100 mg PO DAILY 06/05/13 [History] Ipratropium [Atrovent 0.06% Nasal [place]] 2 spray NASBOTH TID 03/08/18 [History] Acetaminophen [Tylenol Extra Strength] 1,000 mg PO BEDTIME PRN 10/18/18 [History ] Past Medical History HEENT History: Reports: Other (See Below) Other HEENT History: Astigmatism. Hypermetropia Cardiovascular History: Reports: High Cholesterol Respiratory History: Reports: Other (See Below) Other Respiratory History: Stridor respiratory pattern. Pneumonia February 2018 and October 2018. Gastrointestinal History: Reports: GERD, Other (See Below) Other Gastrointestinal History: Swallowing problems. Genitourinary History: Reports: Chronic Renal Insuffiency, Neurogenic Bladder, Urinary Incontinence Other Genitourinary History: Suprapubic catheter. 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 Parkinsonism. Polyneuropathy. Psychiatric History: Reports: Depression, Other (See Below) Other Psychiatric History: Takes Sertraline. Endocrine/Metabolic History: Reports: None Hematologic History: Reports: None Immunologic History: Reports: None Oncologic (Cancer) History: Reports: None Dermatologic History: Reports: None - Infectious Disease History Infectious Disease History: Reports: Chicken Pox, Measles, Rubella - Past Surgical History HEENT Surgical History: Reports: Adenoidectomy, Tonsillectomy GI Surgical History: Reports: Appendectomy, Colonoscopy Social & Family History - Family History Family Medical History: Unobtainable - Tobacco Use Smoking Status *Q: Never Smoker Second Hand Smoke Exposure: No - Caffeine Use Caffeine Use: Reports: None - Recreational Drug Use Recreational Drug Use: No - Living Situation & Occupation Living situation: Reports: Occupation: Retired Social History Comment: 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 Has had increasing debility over the last couple of years and follows with a neurologist for multiple system atrophy. 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 (Limited due to patient condition) ED EXAM, GENERAL - Physical Exam Exam: See Below Free Text/Narrative:: Gen.: Alert, no acute or apparent distress. He is immobile and sitting upright in a wheelchair but is able to answer yes or no questions with thumbs up and comes down. tympanic membranes are clear bilaterally with normal light reflex and throat is without erythema, mucous members noted to be slightly dry. He has no obvious cervical lymphadenopathy. lungs have crackles in the left base but no obvious wheezing and he does not appear to be any respiratory distress. Heart is regular rate and rhythm. He has +2 peripheral pulses in both the upper and lower extremities and no lower extremity edema. There are no obvious rashes or wounds. Abdomen is soft and nontender, limited exam due to patient's upright position. Neuro: Very limited mobility, parkinsonian-type features. Course - Vital Signs Text/Narrative:: patient presenting with new hypoxia, not on oxygen at baseline. Exam suspicious for pneumonia, will get chest x-ray and labs. Plan for admission given his multiple comorbidities. IV fluids ordered and chart reviewed. Will plan to start Levaquin iv. urinalysis to be collected from the bag, although will most likely reflect colonization. Review of previous cultures shows that it was also sensitive to Levaquin. Patient does not appear septic Last Recorded V/S: Last Vital Signs Temp 36.6 C 10/18/18 19:30 Pulse 78 10/18/18 19:30 Resp 18 10/18/18 19:30 BP 127/67 10/18/18 19:30 Pulse Ox 98 10/18/18 19:30 - Orders/Labs/Meds Orders: Active Orders 24 hr Category Date Time Status CXR [Chest 1V Frontal] [CR] Stat Exams 10/18/18 17:35 Taken Levofloxacin/Dextrose 5%-Water [Levaquin in D5W 750 MG/ Med 10/18/18 17:30 Active 150 ML] 750 mg Premix Bag 1 bag IV Q24H Sodium Chloride 0.9% [Normal Saline] 1,000 ml Med 10/18/18 17:45 Active IV ASDIRECTED Medication Orders Acetaminophen (Tylenol) 650 mg PO Q4H PRN PRN Reason: Pain (Mild 1-3)/fever Levofloxacin/Dextrose 750 mg/ (Premix) 150 mls @ 100 mls/hr IV Q24H [facility] Last Admin: 10/18/18 17:48 Dose: 100 mls/hr Sodium Chloride (Normal Saline) 1,000 mls @ 150 mls/hr IV ASDIRECTED JEANMARIE Last Admin: 10/18/18 17:47 Dose: 150 mls/hr Labs: Laboratory Tests 10/18/18 10/18/18 10/18/18 Range/Units 17:00 17:00 17:00 WBC 14.6 H (4.5-12.0) X10-3/uL RBC 5.17 (4.30-5.75) x10(6)uL Hgb 15.1 (13.5-17.8) g/dL Hct 44.5 D (30.0-51.3) % MCV 86.0 (80-96) fL MCH 29.2 (27.7-33.6) pg MCHC 33.9 (32.2-35.4) g/dL RDW 13.3 (11.5-15.5) % Plt Count 211 (125-369) X10(3)uL MPV 7.1 L (7.4-10.4) fL Neut % (Auto) 74.7 (46-82) % Lymph % (Auto) 13.8 (13-37) % [place] % (Auto) 8.2 (4-12) % Eos % (Auto) 1 (1.0-5.0) % Baso % (Auto) 2 (0-2) % Neut # (Auto) 10.9 H (1.6-8.3) # Lymph # (Auto) 2.0 (0.6-5.0) # [place] # (Auto) 1.2 (0.0-1.3) # Eos # (Auto) 0.2 (0.0-0.8) # Baso # (Auto) 0.3 H (0.0-0.2) # Sodium 140 (135-145) mmol/L Potassium 4.2 (3.5-5.3) mmol/L Chloride 102 (100-110) mmol/L Carbon Dioxide 24 (21-32) mmol/L BUN 30 H (7-18) mg/dL Creatinine 1.8 H (0.70-1.30) mg/dL Est Cr Clr Drug Dosing TNP Estimated GFR (MDRD) 38 L (>60) BUN/Creatinine Ratio 16.7 (9-20) Glucose 107 (80-116) mg/dL Lactic Acid (0.4-2.2) mmol/L Calcium 9.5 (8.6-10.2) mg/dL Magnesium 2.1 (1.8-2.5) mg/dL Total Bilirubin 0.9 (0.1-1.3) mg/dL AST 15 D (5-25) IU/L ALT 28 D (12-36) U/L Alkaline Phosphatase 94 (56-112) IU/L NT-Pro-B Natriuret Pep (<=125) pg/mL Total Protein 8.6 H (6.0-8.0) g/dL Albumin 4.3 (3.2-4.6) g/dL Globulin 4.3 g/dL Albumin/Globulin Ratio 1.0 10/18/18 10/18/18 Range/Units 17:00 17:00 WBC (4.5-12.0) X10-3/uL RBC (4.30-5.75) x10(6)uL Hgb (13.5-17.8) g/dL Hct (30.0-51.3) % MCV (80-96) fL MCH (27.7-33.6) pg MCHC (32.2-35.4) g/dL RDW (11.5-15.5) % Plt Count (125-369) X10(3)uL MPV (7.4-10.4) fL Neut % (Auto) (46-82) % Lymph % (Auto) (13-37) % [place] % (Auto) (4-12) % Eos % (Auto) (1.0-5.0) % Baso % (Auto) (0-2) % Neut # (Auto) (1.6-8.3) # Lymph # (Auto) (0.6-5.0) # [place] # (Auto) (0.0-1.3) # Eos # (Auto) (0.0-0.8) # Baso # (Auto) (0.0-0.2) # Sodium (135-145) mmol/L Potassium (3.5-5.3) mmol/L Chloride (100-110) mmol/L Carbon Dioxide (21-32) mmol/L BUN (7-18) mg/dL Creatinine (0.70-1.30) mg/dL Est Cr Clr Drug Dosing Estimated GFR (MDRD) (>60) BUN/Creatinine Ratio (9-20) Glucose (80-116) mg/dL Lactic Acid 0.7 (0.4-2.2) mmol/L Calcium (8.6-10.2) mg/dL Magnesium (1.8-2.5) mg/dL Total Bilirubin (0.1-1.3) mg/dL AST (5-25) IU/L ALT (12-36) U/L Alkaline Phosphatase (56-112) IU/L NT-Pro-B Natriuret Pep 389 H (<=125) pg/mL Total Protein (6.0-8.0) g/dL Albumin (3.2-4.6) g/dL Globulin g/dL Albumin/Globulin Ratio Meds: Medications Generic Name Dose Route Start Last Admin Trade Name Freq PRN Reason Stop Dose Admin Acetaminophen 650 mg 10/18/18 19:43 Tylenol PO Q4H PRN Pain (Mild 1-3)/fever Levofloxacin/Dextrose 750 mg/ 150 mls @ 100 mls/hr 10/18/18 17:30 10/18/18 17 :48 Premix IV 100 mls/hr Q24H JEANMARIE Administration Sodium Chloride 1,000 mls @ 150 mls/hr 10/18/18 17:45 10/18/18 17:47 Normal Saline IV 150 mls/hr ASDIRECTED JEANMARIE Administration - Re-Assessments/Exams Free Text/Narrative Re-Assessment/Exam: 10/18/18 IV fluid bolus given and fluids running. Labs reviewed and show an elevated white blood cell count,creatinine at baseline and slightly elevated BUNs. Chest x-ray suspicious for left lower lobe infiltrate which is also consistent with his exam. Levaquin 750 IV ordered for every 24 and will admit to floor. Per his he is on a mechanical soft diet with thickened liquids. Departure - Departure Time of Disposition: 19:30 Disposition: Admitted As Inpatient 67 Condition: Fair Clinical Impression: Multisystem disorder, Palliative care status CKD (chronic kidney disease) Qualifiers: Chronic kidney disease stage: stage 3 (moderate) Qualified Code(s): N18.3 - Chronic kidney disease, stage 3 (moderate) Pneumonia Qualifiers: Pneumonia type: due to unspecified organism Laterality: bilateral Lung location : lower lobe of lung Qualified Code(s): J18.1 - Lobar pneumonia, unspecified organism - Discharge Information *PRESCRIPTION DRUG MONITORING PROGRAM REVIEWED*: Not Applicable *COPY OF PRESCRIPTION DRUG MONITORING REPORT IN PATIENT FRANCES: Not Applicable - My Orders Last 24 Hours: My Active Orders 10/18/18 17:30 Levofloxacin/Dextrose 5%-Water [Levaquin in D5W 750 MG/150 ML] 750 mg Premix Bag 1 bag IV Q24H 10/18/18 17:35 CXR [Chest 1V Frontal] [CR] Stat 10/18/18 17:45 Sodium Chloride 0.9% [Normal Saline] 1,000 ml IV ASDIRECTED - Assessment/Plan Last 24 Hours: My Active Orders 10/18/18 17:30 Levofloxacin/Dextrose 5%-Water [Levaquin in D5W 750 MG/150 ML] 750 mg Premix Bag 1 bag IV Q24H 10/18/18 17:35 CXR [Chest 1V Frontal] [CR] Stat 10/18/18 17:45 Sodium Chloride 0.9% [Normal Saline] 1,000 ml IV ASDIRECTED
[2018-10-19] MEDS ORDERED: Enoxaparin 40 MG/0.4 ML Syringe SUBCUT ONE (09:23)
--- NOTE | 2018-10-19 09:28 | PCM.HP ---
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 He cannot speak but he Plans was being said. His pre-much speaks for him. She brought to the ER because of decreased eating which is abnormal was found to have mild pneumonia and was admitted. No other history can be given at this time. states he might have some nasal congestion. Her and her daughter who live with them have colds recently. - Related Data Allergies/Adverse Reactions: Allergies Allergy/AdvReac Type Severity Reaction Status Date / Time Penicillins Allergy UNKNOWN Verified 10/18/18 17:55 Home Medications: Home Meds Sertraline HCl [Zoloft] 100 mg PO DAILY 06/05/13 [History] Ipratropium [Atrovent 0.06% Nasal [place]] 2 spray NASBOTH TID 03/08/18 [History] Acetaminophen [Tylenol Extra Strength] 1,000 mg PO BEDTIME PRN 10/18/18 [History ] Past Medical History HEENT History: Reports: Other (See Below) Other HEENT History: Astigmatism. Hypermetropia Cardiovascular History: Reports: High Cholesterol Respiratory History: Reports: Other (See Below) Other Respiratory History: Stridor respiratory pattern. Pneumonia February 2018 and October 2018. Gastrointestinal History: Reports: GERD, Other (See Below) Other Gastrointestinal History: Swallowing problems. Genitourinary History: Reports: Chronic Renal Insuffiency, Neurogenic Bladder, Urinary Incontinence Other Genitourinary History: Suprapubic catheter. 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 Parkinsonism. Polyneuropathy. Psychiatric History: Reports: Depression, Other (See Below) Other Psychiatric History: Takes Sertraline. Endocrine/Metabolic History: Reports: None Hematologic History: Reports: None Immunologic History: Reports: None Oncologic (Cancer) History: Reports: None Dermatologic History: Reports: None - Infectious Disease History Infectious Disease History: Reports: Chicken Pox, Measles, Rubella - Past Surgical History HEENT Surgical History: Reports: Adenoidectomy, Tonsillectomy GI Surgical History: Reports: Appendectomy, Colonoscopy Social & Family History - Family History Family Medical History: Unobtainable - Tobacco Use Smoking Status *Q: Never Smoker Second Hand Smoke Exposure: No - Caffeine Use Caffeine Use: Reports: None - Recreational Drug Use Recreational Drug Use: No - Living Situation & Occupation Living situation: Reports: Occupation: Retired H&P Review of Systems - Review of Systems: Review Of Systems: Unable To Obtain Exam - Exam Exam: See Below - Vital Signs Vital Signs: Last Vital Signs Temp 97.6 F 10/19/18 04:00 Pulse 68 10/19/18 04:00 Resp 18 10/19/18 04:00 BP 150/66 H 10/19/18 04:00 Pulse Ox 94 L 10/19/18 08:02 Weight: 201 lb - Exam General: Alert, Oriented, Cooperative, Other (Not able to speak) HEENT: Hearing Intact, Mucosa Moist & [place], Posterior Pharynx Clear, TMs Clear Neck: Supple, Trachea Midline. No: Lymphadenopathy Lungs: Normal Respiratory Effort, Crackles (Mild basis) GI/Abdominal Exam: Normal Bowel Sounds, Soft, Non-Tender, No Organomegaly, No Distention Back Exam: Normal Inspection Extremities: Normal Inspection, No Pedal Edema, Other (His arms and legs are very weak and is wheelchair-bound.) Neurological: No: Normal Gait, Normal Speech, Normal Tone Neuro Extensive - Mental Status: Alert, Oriented x3, Normal Mood/Affect, Normal Cognition Neuro Extensive - Motor, Sensory, Reflexes: No: Normal Gait Psychiatric: Alert, Normal Affect - Patient Data Lab Results Last 24 hrs: Laboratory Results - last 24 hr 10/18/18 10/18/18 10/18/18 Range/Units 17:00 17:00 17:00 WBC 14.6 H (4.5-12.0) X10-3/uL RBC 5.17 (4.30-5.75) x10(6)uL Hgb 15.1 (13.5-17.8) g/dL Hct 44.5 D (30.0-51.3) % MCV 86.0 (80-96) fL MCH 29.2 (27.7-33.6) pg MCHC 33.9 (32.2-35.4) g/dL RDW 13.3 (11.5-15.5) % Plt Count 211 (125-369) X10(3)uL MPV 7.1 L (7.4-10.4) fL Neut % (Auto) 74.7 (46-82) % Lymph % (Auto) 13.8 (13-37) % [place] % (Auto) 8.2 (4-12) % Eos % (Auto) 1 (1.0-5.0) % Baso % (Auto) 2 (0-2) % Neut # (Auto) 10.9 H (1.6-8.3) # Lymph # (Auto) 2.0 (0.6-5.0) # [place] # (Auto) 1.2 (0.0-1.3) # Eos # (Auto) 0.2 (0.0-0.8) # Baso # (Auto) 0.3 H (0.0-0.2) # Sodium 140 (135-145) mmol/L Potassium 4.2 (3.5-5.3) mmol/L Chloride 102 (100-110) mmol/L Carbon Dioxide 24 (21-32) mmol/L BUN 30 H (7-18) mg/dL Creatinine 1.8 H (0.70-1.30) mg/dL Est Cr Clr Drug Dosing TNP Estimated GFR (MDRD) 38 L (>60) BUN/Creatinine Ratio 16.7 (9-20) Glucose 107 (80-116) mg/dL Lactic Acid (0.4-2.2) mmol/L Calcium 9.5 (8.6-10.2) mg/dL Magnesium 2.1 (1.8-2.5) mg/dL Total Bilirubin 0.9 (0.1-1.3) mg/dL AST 15 D (5-25) IU/L ALT 28 D (12-36) U/L Alkaline Phosphatase 94 (56-112) IU/L NT-Pro-B Natriuret Pep (<=125) pg/mL Total Protein 8.6 H (6.0-8.0) g/dL Albumin 4.3 (3.2-4.6) g/dL Globulin 4.3 g/dL Albumin/Globulin Ratio 1.0 Urine Color (YELLOW) Urine Appearance (CLEAR) Urine pH (5.0-6.5) Ur Specific [place] (1.010-1.025) Urine Protein (NEGATIVE) mg/dL Urine Glucose (UA) (NORMAL) mg/dL Urine Ketones (NEGATIVE) mg/dL Urine Occult Blood (NEGATIVE) Urine Nitrite (NEGATIVE) Urine Bilirubin (NEGATIVE) Urine Urobilinogen (NEGATIVE) mg/dL Ur Leukocyte Esterase (NEGATIVE) Urine RBC (0-5) Urine WBC (0-5) Ur Squamous Epith Cells (NS,R,O) Urine Bacteria (NS) 10/18/18 10/18/18 10/18/18 Range/Units 17:00 17:00 18:30 WBC (4.5-12.0) X10-3/uL RBC (4.30-5.75) x10(6)uL Hgb (13.5-17.8) g/dL Hct (30.0-51.3) % MCV (80-96) fL MCH (27.7-33.6) pg MCHC (32.2-35.4) g/dL RDW (11.5-15.5) % Plt Count (125-369) X10(3)uL MPV (7.4-10.4) fL Neut % (Auto) (46-82) % Lymph % (Auto) (13-37) % [place] % (Auto) (4-12) % Eos % (Auto) (1.0-5.0) % Baso % (Auto) (0-2) % Neut # (Auto) (1.6-8.3) # Lymph # (Auto) (0.6-5.0) # [place] # (Auto) (0.0-1.3) # Eos # (Auto) (0.0-0.8) # Baso # (Auto) (0.0-0.2) # Sodium (135-145) mmol/L Potassium (3.5-5.3) mmol/L Chloride (100-110) mmol/L Carbon Dioxide (21-32) mmol/L BUN (7-18) mg/dL Creatinine (0.70-1.30) mg/dL Est Cr Clr Drug Dosing Estimated GFR (MDRD) (>60) BUN/Creatinine Ratio (9-20) Glucose (80-116) mg/dL Lactic Acid 0.7 (0.4-2.2) mmol/L Calcium (8.6-10.2) mg/dL Magnesium (1.8-2.5) mg/dL Total Bilirubin (0.1-1.3) mg/dL AST (5-25) IU/L ALT (12-36) U/L Alkaline Phosphatase (56-112) IU/L NT-Pro-B Natriuret Pep 389 H (<=125) pg/mL Total Protein (6.0-8.0) g/dL Albumin (3.2-4.6) g/dL Globulin g/dL Albumin/Globulin Ratio Urine Color Yellow (YELLOW) Urine Appearance Clear (CLEAR) Urine pH 5.0 (5.0-6.5) Ur Specific [place] 1.020 (1.010-1.025) Urine Protein Negative (NEGATIVE) mg/dL Urine Glucose (UA) Normal (NORMAL) mg/dL Urine Ketones Negative (NEGATIVE) mg/dL Urine Occult Blood Moderate H (NEGATIVE) Urine Nitrite Positive H (NEGATIVE) Urine Bilirubin Negative (NEGATIVE) Urine Urobilinogen Normal (NEGATIVE) mg/dL Ur Leukocyte Esterase Large H (NEGATIVE) Urine RBC 0-5 (0-5) Urine WBC 5-10 H (0-5) Ur Squamous Epith Cells Few H (NS,R,O) Urine Bacteria Many H (NS) Result Diagrams: 10/18/18 17:00 10/18/18 17:00 - Problem List (1) Bacteriuria SNOMED Code(s): 44074290 ICD Code: R82.71 - BACTERIURIA Status: Acute Current Visit: Yes (2) CKD (chronic kidney disease) SNOMED Code(s): 197902508 ICD Code: N18.9 - CHRONIC KIDNEY DISEASE, UNSPECIFIED Status: Acute Current Visit: Yes Qualifiers: Chronic kidney disease stage: stage 3 (moderate) Qualified Code(s): N18.3 - Chronic kidney disease, stage 3 (moderate) (3) Multisystem disorder SNOMED Code(s): 05581507 ICD Code: R69 - ILLNESS, UNSPECIFIED Status: Acute Current Visit: Yes (4) Palliative care status SNOMED Code(s): 708131500 ICD Code: Z51.5 - ENCOUNTER FOR PALLIATIVE CARE Status: Acute Current Visit: Yes (5) Pneumonia SNOMED Code(s): 118227073 ICD Code: J18.9 - PNEUMONIA, UNSPECIFIED ORGANISM Status: Acute Current Visit: Yes Qualifiers: Pneumonia type: due to unspecified organism Laterality: bilateral Lung location: lower lobe of lung Qualified Code(s): J18.1 - Lobar pneumonia, unspecified organism Problem List Initiated/Reviewed/Updated: Yes Orders Last 24hrs: Active Orders 24 hr Category Date Time Status Patient Status [ADT] Routine ADT 10/18/18 19:43 Active Oxygen Therapy [RC] PRN Care 10/18/18 19:43 Active Pulse Oximetry [RC] CONTINUOUS Care 10/18/18 19:43 Active Up With Assistance [RC] ASDIRECTED Care 10/18/18 19:43 Active Vital Signs [RC] 00,04,08,12,16,20 Care 10/18/18 19:43 Active Mechanical Soft Diet [DIET] Diet 10/18/18 Dinner Active Thickened Liquids [DIET] Diet 10/19/18 Breakfast Active CXR [Chest 1V Frontal] [CR] Stat Exams 10/18/18 17:35 Taken CBC WITH AUTO DIFF [HEME] AM Lab 10/20/18 05:11 Ordered CULTURE BLOOD [BC] Urgent Lab 10/19/18 08:47 Ordered CULTURE BLOOD [BC] Urgent Lab 10/19/18 08:47 Ordered CULTURE URINE [RM] Stat Lab 10/18/18 18:30 Received Acetaminophen [Tylenol] Med 10/18/18 19:43 Active 650 mg PO Q4H PRN Enoxaparin [Lovenox] Med 10/19/18 09:23 Once 40 mg SUBCUT ONETIME ONE Ipratropium [Atrovent 0.06% Nasal [place]] Med 10/19/18 09:30 Ordered 2 ml MARLYS Q8H Levofloxacin/Dextrose 5%-Water [Levaquin in D5W 750 MG/ Med 10/20/18 18:00 Active 150 ML] 150 ml IV Q48H Sertraline [Zoloft] Med 10/19/18 09:30 Active 100 mg PO DAILY Blood Culture x2 Reflex Set [OM.PC] Urgent Oth 10/19/18 08:46 Ordered Resuscitation Status Routine Resus Stat 10/18/18 19:27 Ordered Medication Orders Acetaminophen (Tylenol) 650 mg PO Q4H PRN PRN Reason: Pain (Mild 1-3)/fever Levofloxacin/Dextrose (Levaquin In D5w 750 Mg/150 Ml) 150 mls @ 100 mls/hr IV Q48H JEANMARIE Ipratropium [place] (Atrovent 0.06% Nasal [place]) 2 ml MARLYS TID JEANMARIE Sertraline HCl (Zoloft) 100 mg PO DAILY JEANMARIE Assessment/Plan Comment:: 1. Admit to inpatient. 2. DNR/DNI 3. IV fluids and he can eat his regular diet 4. Lovenox for VTE prophylaxis 5. Levaquin IV and pharmacy to adjust the dose 6. Continue his home medications. 7. Continue to rotate the patient to prevent ulcers 8. Up in the wheelchair
[2018-10-19] MEDS: Ipratropium 0.06% Nasal Spray 15 ML Bottle NAS SCH ×3 (09:48→21:26)
[2018-10-19] MEDS: Sertraline 100 MG Tab PO SCH (09:48)
--- NOTE | 2018-10-19 12:23 | CR ---
CHEST 1 VIEW: INDICATION: Crackles in lungs, hypoxia. 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 Pulmonary vasculature is also somewhat prominent. The heart size is indeterminate with the poor inspiration and indistinctness of the images. The heart maybe enlarged. CHF could be present. Findings may represent pneumonia and or pulmonary edema. Other etiologies such as pulmonary emboli cannot be excluded. MTDD
[2018-10-20] MEDS: Ipratropium 0.06% Nasal Spray 15 ML Bottle NAS SCH ×3 (08:37→21:02)
[2018-10-20] MEDS: Sertraline 100 MG Tab PO SCH (08:38)
[2018-10-20] MEDS: Enoxaparin 40 MG/0.4 ML Syringe SUBCUT SCH (08:38)
[2018-10-20] MEDS ORDERED: Bisacodyl 10 MG Supp RECTAL PRN (10:38)
--- NOTE | 2018-10-20 13:28 | PCM.PN ---
- General Info Date of Service: 10/20/18 Subjective Update: Patient is doing better this morning, his stated that about 24 hrs after first dose of Levofloxacin was given that he seemed to improve. He is not on home oxygen but desaturated when they tried to wean yesterday to 90%. No complaints of pain, normal bowel movements for him. Had rare cough but his states with his muscle condition that he can't cough very well due to muscle control. No fevers or chills. - Review of Systems General: Denies: Fever, Chills Pulmonary: Denies: Shortness of Breath, Cough Cardiovascular: Denies: Chest Pain, Edema Gastrointestinal: Denies: Abdominal Pain, Constipation, Diarrhea, Nausea, Vomiting - Patient Data Vitals - Most Recent: Last Vital Signs Temp 35.9 C 10/20/18 12:00 Pulse 63 10/20/18 12:00 Resp 17 10/20/18 12:00 BP 143/66 H 10/20/18 12:00 Pulse Ox 97 10/20/18 12:00 Weight - Most Recent: 91.172 kg I&O - Last 24 Hours: Intake & Output 10/19/18 10/20/18 10/20/18 22:59 06:59 14:59 Intake Total 0 200 Output Total 1800 Balance 0 -1600 Lab Results Last 24 Hours: Laboratory Results - last 24 hr 10/20/18 Range/Units 06:47 WBC 6.0 (4.5-12.0) X10-3/uL RBC 4.44 (4.30-5.75) x10(6)uL Hgb 12.8 L (13.5-17.8) g/dL Hct 38.1 (30.0-51.3) % MCV 85.8 (80-96) fL MCH 28.8 (27.7-33.6) pg MCHC 33.6 (32.2-35.4) g/dL RDW 13.1 (11.5-15.5) % Plt Count 189 (125-369) X10(3)uL MPV 7.3 L (7.4-10.4) fL Neut % (Auto) 60.2 (46-82) % Lymph % (Auto) 23.7 (13-37) % [place] % (Auto) 9.4 (4-12) % Eos % (Auto) 6 H (1.0-5.0) % Baso % (Auto) 0 (0-2) % Neut # (Auto) 3.6 (1.6-8.3) # Lymph # (Auto) 1.4 (0.6-5.0) # [place] # (Auto) 0.6 (0.0-1.3) # Eos # (Auto) 0.4 (0.0-0.8) # Baso # (Auto) 0.0 (0.0-0.2) # Shankar Results Last 24 Hours: Microbiology 10/19/18 10:30 Aerobic Blood Culture - Preliminary Blood - Venous - Lab Draw NO GROWTH AFTER 1 DAY Anaerobic Blood Culture - Preliminary NO GROWTH AFTER 1 DAY 10/19/18 10:25 Aerobic Blood Culture - Preliminary Blood - Venous NO GROWTH AFTER 1 DAY Anaerobic Blood Culture - Preliminary NO GROWTH AFTER 1 DAY 10/18/18 18:30 Urine Culture - Preliminary Urine, Voided Gram Negative Rods Med Orders - Current: Current Medications Acetaminophen (Tylenol) 650 mg PO Q4H PRN PRN Reason: Pain (Mild 1-3)/fever Last Admin: 10/19/18 11:08 Dose: 650 mg Bisacodyl (Dulcolax) 10 mg RECTAL DAILY PRN PRN Reason: Constipation Last Admin: 10/20/18 10:43 Dose: 10 mg Enoxaparin Sodium (Lovenox) 40 mg SUBCUT DAILY [facility] Last Admin: 10/20/18 08:38 Dose: 40 mg Levofloxacin/Dextrose (Levaquin In D5w 750 Mg/150 Ml) 150 mls @ 100 mls/hr IV Q48H [facility] Ipratropium [place] (Atrovent 0.06% Nasal [place]) 2 ml MARLYS TID [facility] Last Admin: 10/20/18 08:37 Dose: 2 spr Sertraline HCl (Zoloft) 100 mg PO DAILY [facility] Last Admin: 10/20/18 08:38 Dose: 100 mg Discontinued Medications Enoxaparin Sodium (Lovenox) 40 mg SUBCUT ONETIME ONE Stop: 10/19/18 09:24 Last Admin: 10/19/18 09:47 Dose: 40 mg Levofloxacin/Dextrose 750 mg/ (Premix) 150 mls @ 100 mls/hr IV Q24H [facility] Last Admin: 10/18/18 17:48 Dose: 100 mls/hr Sodium Chloride (Normal Saline) 1,000 mls @ 150 mls/hr IV ASDIRECTED [facility] Last Admin: 10/18/18 22:47 Dose: 150 mls/hr - Exam Quality Assessment: Supplemental Oxygen, Skin Breakdown General: Alert, Oriented, Cooperative Lungs: Decreased Breath Sounds, Crackles Cardiovascular: Regular Rate, Regular Rhythm GI/Abdominal Exam: Normal Bowel Sounds, Soft, Non-Tender, No Distention Extremities: No: Pedal Edema Skin: Warm, Dry, Intact - Problem List & Annotations (1) Bacteriuria SNOMED Code(s): 50103779 Code(s): R82.71 - BACTERIURIA Status: Acute Current Visit: Yes (2) CKD (chronic kidney disease) SNOMED Code(s): 515482488 Code(s): N18.9 - CHRONIC KIDNEY DISEASE, UNSPECIFIED Status: Acute Current Visit: Yes Qualifiers: Chronic kidney disease stage: stage 3 (moderate) Qualified Code(s): N18.3 - Chronic kidney disease, stage 3 (moderate) (3) Multisystem disorder SNOMED Code(s): 71415763 Code(s): R69 - ILLNESS, UNSPECIFIED Status: Acute Current Visit: Yes (4) Pneumonia SNOMED Code(s): 719629887 Code(s): J18.9 - PNEUMONIA, UNSPECIFIED ORGANISM Status: Acute Current Visit: Yes Qualifiers: Pneumonia type: due to unspecified organism Laterality: bilateral Lung location: lower lobe of lung Qualified Code(s): J18.1 - Lobar pneumonia, unspecified organism - Problem List Review Problem List Initiated/Reviewed/Updated: Yes - My Orders Last 24 Hours: My Active Orders 10/20/18 10:38 Bisacodyl [Dulcolax] 10 mg RECTAL DAILY PRN - Plan Plan:: 1 Levaquin IV q48 h, next dose tonight. 2. Wean off oxygen, if he is off oxygen will switch to oral medication and possibly discharge tomorrow. 3. Continue his home medications. 4. Continue to rotate the patient to prevent ulcers 5. Up in the wheelchair
[2018-10-20] MEDS ORDERED: Levofloxacin/Dextrose 5%-Water 150 ML IV SCH (18:00)
[2018-10-21] MEDS: Ipratropium 0.06% Nasal Spray 15 ML Bottle NAS SCH (09:17)
[2018-10-21] MEDS: Sertraline 100 MG Tab PO SCH (09:17)
[2018-10-21] MEDS: Enoxaparin 40 MG/0.4 ML Syringe SUBCUT SCH (09:18)
[2018-10-21 09:27] VITALS: BP 132/79; PULSE 68
--- NOTE | 2018-10-21 10:23 | PCM.DCSUM1 ---
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 He cannot speak but he Plans was being said. His pre-much speaks for him. She brought to the ER because of decreased eating which is abnormal was found to have mild pneumonia and was admitted. No other history can be given at this time. states he might have some nasal congestion. Her and her daughter who live with them have colds recently. Diagnosis: Stroke: No - Discharge Data Discharge Date: 10/21/18 Discharge Disposition: Home, [facility] 06 Condition: Fair - Discharge Diagnosis/Problem(s) (1) Bacteriuria SNOMED Code(s): 15839975 ICD Code: R82.71 - BACTERIURIA Status: Chronic Current Visit: Yes Problem Details: 50,000 GNR on culture, no further sensitivities or ID done. (2) CKD (chronic kidney disease) SNOMED Code(s): 354107824 ICD Code: N18.9 - CHRONIC KIDNEY DISEASE, UNSPECIFIED Status: Chronic Current Visit: Yes Qualifiers: Chronic kidney disease stage: stage 3 (moderate) Qualified Code(s): N18.3 - Chronic kidney disease, stage 3 (moderate) (3) Multisystem disorder SNOMED Code(s): 68366289 ICD Code: R69 - ILLNESS, UNSPECIFIED Status: Chronic Current Visit: Yes (4) Pneumonia SNOMED Code(s): 328551412 ICD Code: J18.9 - PNEUMONIA, UNSPECIFIED ORGANISM Status: Acute Current Visit: Yes Problem Details: Improving Qualifiers: Pneumonia type: due to unspecified organism Laterality: bilateral Lung location: lower lobe of lung Qualified Code(s): J18.1 - Lobar pneumonia, unspecified organism - Patient Summary/Data Hospital Course: Patient was placed on oxygen and started on Levofloxacin 750 mg q48h. His CBC came down to normal, weaned off oxygen. UA/UC grew only 30769 GNR but no ID/MICHAEL was needed(most likely contamination). Patient's condition improved so will discharge on oral medications. - Patient Instructions Diet: Mechanical Soft Diet, Other: Thickened Liquids Activity, Other: As previous Driving: Do Not Drive Showering/Bathing: May Shower Notify Provider of: Fever, Nausea and/or Vomiting Other/Special Instructions: Increased shortness of breath - Discharge Plan *PRESCRIPTION DRUG MONITORING PROGRAM REVIEWED*: Not Applicable *COPY OF PRESCRIPTION DRUG MONITORING REPORT IN PATIENT FRANCES: Not Applicable Prescriptions/Med Rec: levoFLOXacin [Levaquin] 750 mg PO Q48H 5 Days #5 tab Home Medications: Home Meds Sertraline HCl [Zoloft] 100 mg PO DAILY 06/05/13 [History] Ipratropium [Atrovent 0.06% Nasal [place]] 2 spray NASBOTH TID 03/08/18 [History] Acetaminophen [Tylenol Extra Strength] 1,000 mg PO BEDTIME PRN 10/18/18 [History ] levoFLOXacin [Levaquin] 750 mg PO Q48H 5 Days #5 tab 10/21/18 [Rx] Oxygen Therapy Mode: Room Air Forms: ED Department Discharge Referrals: Arnaldo Alvarez MD [Primary Care Provider] - - Discharge Summary/Plan Comment DC Time >30 min.: Yes - General Info Date of Service: 10/21/18 Subjective Update: Doing well this morning, off oxygen, saturating in between 94-95%. He had 700 ml of urine out overnight. His feels he is improved. Had 2 good bowel movements yesterday. - Patient Data Vitals - Most Recent: Last Vital Signs Temp 36.6 C 10/21/18 09:00 Pulse 68 10/21/18 09:00 Resp 20 10/21/18 09:00 BP 132/79 10/21/18 09:00 Pulse Ox 93 L 10/21/18 09:00 Weight - Most Recent: 91.172 kg I&O - Last 24 hours: Intake & Output 10/20/18 10/21/18 10/21/18 22:59 06:59 14:59 Intake Total 150 50 Output Total 625 Balance 150 -575 Lab Results - Last 24 hrs: Laboratory Results - last 24 hr 10/21/18 Range/Units 06:20 Sodium 140 (135-145) mmol/L Potassium 4.1 (3.5-5.3) mmol/L Chloride 105 (100-110) mmol/L Carbon Dioxide 25 (21-32) mmol/L BUN 30 H (7-18) mg/dL Creatinine 1.8 H (0.70-1.30) mg/dL Est Cr Clr Drug Dosing 46.30 mL/min Estimated GFR (MDRD) 38 L (>60) BUN/Creatinine Ratio 16.7 (9-20) Glucose 100 (80-116) mg/dL Calcium 9.0 (8.6-10.2) mg/dL MICHAEL Results - Last 24 hrs: Microbiology 10/19/18 10:30 Aerobic Blood Culture - Preliminary Blood - Venous - Lab Draw NO GROWTH AFTER 1 DAY Anaerobic Blood Culture - Preliminary NO GROWTH AFTER 1 DAY 10/19/18 10:25 Aerobic Blood Culture - Preliminary Blood - Venous NO GROWTH AFTER 1 DAY Anaerobic Blood Culture - Preliminary NO GROWTH AFTER 1 DAY Med Orders - Current: Current Medications Acetaminophen (Tylenol) 650 mg PO Q4H PRN PRN Reason: Pain (Mild 1-3)/fever Last Admin: 10/19/18 11:08 Dose: 650 mg Bisacodyl (Dulcolax) 10 mg RECTAL DAILY PRN PRN Reason: Constipation Last Admin: 10/20/18 10:43 Dose: 10 mg Enoxaparin Sodium (Lovenox) 40 mg SUBCUT DAILY [facility] Last Admin: 10/21/18 09:18 Dose: 40 mg Levofloxacin/Dextrose (Levaquin In D5w 750 Mg/150 Ml) 150 mls @ 100 mls/hr IV Q48H [facility] Last Admin: 10/20/18 18:03 Dose: 100 mls/hr Ipratropium [place] (Atrovent 0.06% Nasal [place]) 2 ml MARLYS TID [facility] Last Admin: 10/21/18 09:17 Dose: 2 spr Sertraline HCl (Zoloft) 100 mg PO DAILY [facility] Last Admin: 10/21/18 09:17 Dose: 100 mg Discontinued Medications Enoxaparin Sodium (Lovenox) 40 mg SUBCUT ONETIME ONE Stop: 10/19/18 09:24 Last Admin: 10/19/18 09:47 Dose: 40 mg Levofloxacin/Dextrose 750 mg/ (Premix) 150 mls @ 100 mls/hr IV Q24H [facility] Last Admin: 10/18/18 17:48 Dose: 100 mls/hr Sodium Chloride (Normal Saline) 1,000 mls @ 150 mls/hr IV ASDIRECTED [facility] Last Admin: 10/18/18 22:47 Dose: 150 mls/hr - Exam General: Reports: Alert, Cooperative Lungs: Reports: Decreased Breath Sounds. Denies: Wheezing Cardiovascular: Reports: Regular Rate, Regular Rhythm GI/Abdominal Exam: Normal Bowel Sounds, Soft, Non-Tender, No Distention *Q Meaningful Use (DIS) - VTE *Q VTE Anticoagulation Contraindications: Med/TX Not Indicated/Need - Stroke *Q Rehabilitation Assessment Contraindication *Q: Med/tx not indicated/need - AMI *Q Statin Contraindications AMI *Q: Med/TX Not Indicated/Need
== END 2018-10-21 12:45 | disposition home health service (06) | DRG 194 ==
LOC: FB.ED 16:31 → FB.MS 18:00
PROVIDERS: ADMIT Family Medicine; ATTEND Family Medicine
DX: J18.1 Lobar pneumonia, unspecified organism (principal); G90.3 Multi-system degeneration of the autonomic nervous system; G11.9 Hereditary ataxia, unspecified; Z51.5 Encounter for palliative care; R82.71 Bacteriuria; G56.20 Lesion of ulnar nerve, unspecified upper limb; G20 Parkinson's disease; G62.9 Polyneuropathy, unspecified; N18.3 Chronic kidney disease, stage 3 (moderate); N31.9 Neuromuscular dysfunction of bladder, unspecified; N39.498 Other specified urinary incontinence; M19.90 Unspecified osteoarthritis, unspecified site; E78.00 Pure hypercholesterolemia, unspecified; R06.1 Stridor; K21.9 Gastro-esophageal reflux disease without esophagitis; F32.9 Major depressive disorder, single episode, unspecified; R13.10 Dysphagia, unspecified; Z99.3 Dependence on wheelchair; H52.209 Unspecified astigmatism, unspecified eye; H52.00 Hypermetropia, unspecified eye; Z88.0 Allergy status to penicillin
CPT/HCPCS: 36415; 71045; 80048; 80053; 81001; 83605; 83735; 83880; 85025; 87040; 87086; 87088; 87186; 96365; 99285-25; A9270-GY; J1650; J1956; J7030

== ENCOUNTER 2019-04-12 10:39 | Emergency (ER) | payer OTHER, MEDICARE ==
--- NOTE | 2019-04-12 12:19 | EDM.PDOC ---
ED HPI GENERAL MEDICAL PROBLEM - General Chief Complaint: General Stated Complaint: COLD UPPER RESP Time Seen by Provider: 04/12/19 11:00 Source of Information: Reports: Patient, Family, Old Records History Limitations: Reports: Physical Impairment - History of Present Illness INITIAL COMMENTS - FREE TEXT/NARRATIVE: Samuel returns to [facility] ED with a 12 hr hx of some chest congestion, low grade fever, malaise, and concerns for infection. There is no nasal congestion, reported sore throat, and coughing has been generally nonproductive. There is no vomiting, diarrhea, or change in urine output from suprapubic catheter. 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 Cognitive functions are not affected. Spouse reports no recent episodes of suspected aspiration. He is due to have the catheter changed today. - Related Data Allergies Allergy/AdvReac Type Severity Reaction Status Date / Time Penicillins Allergy UNKNOWN Verified 10/18/18 17:55 Home Meds: Home Meds Sertraline HCl [Zoloft] 100 mg PO DAILY 06/05/13 [History] Ipratropium [Atrovent 0.06% Nasal [place]] 2 spray NASBOTH TID 03/08/18 [History] Acetaminophen [Tylenol Extra Strength] 1,000 mg PO BEDTIME PRN 10/18/18 [History ] levoFLOXacin [Levaquin] 750 mg PO Q48H 5 Days #5 tab 10/21/18 [Rx] Past Medical History HEENT History: Reports: Other (See Below) Other HEENT History: Astigmatism. Hypermetropia Cardiovascular History: Reports: High Cholesterol Respiratory History: Reports: Other (See Below) Other Respiratory History: Stridor respiratory pattern. Pneumonia February 2018 and October 2018. Gastrointestinal History: Reports: GERD, Other (See Below) Other Gastrointestinal History: Swallowing problems. Genitourinary History: Reports: Chronic Renal Insuffiency, Neurogenic Bladder, Urinary Incontinence Other Genitourinary History: Suprapubic catheter. 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 Parkinsonism. Polyneuropathy. Psychiatric History: Reports: Depression, Other (See Below) Other Psychiatric History: Takes Sertraline. Endocrine/Metabolic History: Reports: None Hematologic History: Reports: None Immunologic History: Reports: None Oncologic (Cancer) History: Reports: None Dermatologic History: Reports: None - Infectious Disease History Infectious Disease History: Reports: Chicken Pox, Measles, Rubella - Past Surgical History HEENT Surgical History: Reports: Adenoidectomy, Tonsillectomy GI Surgical History: Reports: Appendectomy, Colonoscopy Social & Family History - Family History Family Medical History: Unobtainable - Caffeine Use Caffeine Use: Reports: None - Living Situation & Occupation Living situation: Reports: Occupation: Retired ED ROS GENERAL - Review of Systems Review Of Systems: Comprehensive ROS is negative, except as noted in HPI. ED EXAM, GENERAL - Physical Exam Exam: See Below Exam Limited By: Physical Impairment General Appearance: Alert, No Apparent Distress, Lethargic Eye Exam: Bilateral Eye: EOMI, Normal Inspection, PERRL Ears: Normal External Exam Nose: Normal Inspection Throat/Mouth: Normal Inspection, Normal Lips, Normal Gums, Normal Oropharynx, No Airway Compromise Head: Normocephalic Neck: Normal Inspection, Supple, Non-Tender Respiratory/Chest: Chest Non-Tender, Decreased Breath Sounds, Crackles, Prolonged Expiration Cardiovascular: Regular Rate, Rhythm, No Edema, No Gallop, No JVD, No Murmur, No Rub GI/Abdominal: Normal Bowel Sounds, Soft, Non-Tender, No Organomegaly, No Distention, No Mass, Other (suprapubic indwelling catheter) (Male) Exam: Deferred Rectal (Males) Exam: Deferred Back Exam: Normal Inspection Extremities: Non-Tender, No Pedal Edema, Other (loss of motor strength generalized) Neurological: Alert, CN II-XII Intact, Normal Cognition, Slow to Respond Psychiatric: Flat Affect Skin Exam: Warm, Dry, Intact, Normal Color, No Rash Lymphatic: No Adenopathy Course - Vital Signs Text/Narrative:: Following assessment, I obtained a chest x ray, noting some atelectasis but no herminio infiltrates; Hgb 14.5 gm, WBC 14,800, plts adequate; BUN 32, Cr 1.7; UA noting packed WBC, large leuk esterase, mod bacteria; CRP 7.3; A UTI is suspected with co morbid lower respiratory infection. Spouse is comfortable with home managment. Last Recorded V/S: Last Vital Signs Temp 37.2 C 04/12/19 10:55 Pulse 82 04/12/19 10:55 Resp 18 04/12/19 10:55 BP 149/69 H 04/12/19 10:55 Pulse Ox 93 L 04/12/19 10:55 - Orders/Labs/Meds Orders: Active Orders 24 hr Category Date Time Status Chest 1V Frontal [CR] Stat Exams 04/12/19 11:48 Taken Labs: Laboratory Tests 04/12/19 04/12/19 04/12/19 Range/Units 12:00 12:00 12:00 WBC 14.8 H (4.5-12.0) X10-3/uL RBC 5.29 (4.30-5.75) x10(6)uL Hgb 14.5 (13.5-17.8) g/dL Hct 44.2 (30.0-51.3) % MCV 83.6 (80-96) fL MCH 27.4 L (27.7-33.6) pg MCHC 32.8 (32.2-35.4) g/dL RDW 14.8 (11.5-15.5) % Plt Count 227 (125-369) X10(3)uL MPV 7.2 L (7.4-10.4) fL Neut % (Auto) 77.2 (46-82) % Lymph % (Auto) 12.7 L (13-37) % Ness % (Auto) 8.8 (4-12) % Eos % (Auto) 1 (1.0-5.0) % Baso % (Auto) 1 (0-2) % Neut # (Auto) 11.4 H (1.6-8.3) # Lymph # (Auto) 1.9 (0.6-5.0) # Ness # (Auto) 1.3 (0.0-1.3) # Eos # (Auto) 0.1 (0.0-0.8) # Baso # (Auto) 0.1 (0.0-0.2) # Sodium 139 (135-145) mmol/L Potassium 4.3 (3.5-5.3) mmol/L Chloride 101 (100-110) mmol/L Carbon Dioxide 26 (21-32) mmol/L BUN 32 H (7-18) mg/dL Creatinine 1.7 H (0.70-1.30) mg/dL Est Cr Clr Drug Dosing TNP Estimated GFR (MDRD) 40 L (>60) BUN/Creatinine Ratio 18.8 (9-20) Glucose 121 H (80-116) mg/dL Lactic Acid 1.1 (0.4-2.2) mmol/L Calcium 9.6 (8.6-10.2) mg/dL C-Reactive Protein (0.5-0.9) mg/dL Urine Color (YELLOW) Urine Appearance (CLEAR) Urine pH (5.0-6.5) Ur Specific [place] (1.010-1.025) Urine Protein (NEGATIVE) mg/dL Urine Glucose (UA) (NORMAL) mg/dL Urine Ketones (NEGATIVE) mg/dL Urine Occult Blood (NEGATIVE) Urine Nitrite (NEGATIVE) Urine Bilirubin (NEGATIVE) Urine Urobilinogen (NEGATIVE) mg/dL Ur Leukocyte Esterase (NEGATIVE) Urine WBC (0-5) 04/12/19 04/12/19 Range/Units 12:00 12:51 WBC (4.5-12.0) X10-3/uL RBC (4.30-5.75) x10(6)uL Hgb (13.5-17.8) g/dL Hct (30.0-51.3) % MCV (80-96) fL MCH (27.7-33.6) pg MCHC (32.2-35.4) g/dL RDW (11.5-15.5) % Plt Count (125-369) X10(3)uL MPV (7.4-10.4) fL Neut % (Auto) (46-82) % Lymph % (Auto) (13-37) % Ness % (Auto) (4-12) % Eos % (Auto) (1.0-5.0) % Baso % (Auto) (0-2) % Neut # (Auto) (1.6-8.3) # Lymph # (Auto) (0.6-5.0) # Ness # (Auto) (0.0-1.3) # Eos # (Auto) (0.0-0.8) # Baso # (Auto) (0.0-0.2) # Sodium (135-145) mmol/L Potassium (3.5-5.3) mmol/L Chloride (100-110) mmol/L Carbon Dioxide (21-32) mmol/L BUN (7-18) mg/dL Creatinine (0.70-1.30) mg/dL Est Cr Clr Drug Dosing Estimated GFR (MDRD) (>60) BUN/Creatinine Ratio (9-20) Glucose (80-116) mg/dL Lactic Acid (0.4-2.2) mmol/L Calcium (8.6-10.2) mg/dL C-Reactive Protein 7.3 H* (0.5-0.9) mg/dL Urine Color Yellow (YELLOW) Urine Appearance Cloudy (CLEAR) Urine pH 5.0 (5.0-6.5) Ur Specific [place] 1.020 (1.010-1.025) Urine Protein 30 H (NEGATIVE) mg/dL Urine Glucose (UA) Normal (NORMAL) mg/dL Urine Ketones Negative (NEGATIVE) mg/dL Urine Occult Blood Moderate H (NEGATIVE) Urine Nitrite Positive H (NEGATIVE) Urine Bilirubin Negative (NEGATIVE) Urine Urobilinogen Normal (NEGATIVE) mg/dL Ur Leukocyte Esterase Large H (NEGATIVE) Urine WBC Packed H (0-5) Departure - Departure Time of Disposition: 14:31 Disposition: Home, Self-Care 01 Condition: Fair Clinical Impression: UTI, Urinary tract infectious disease, Lower respiratory tract infection - Discharge Information *PRESCRIPTION DRUG MONITORING PROGRAM REVIEWED*: Not Applicable *COPY OF PRESCRIPTION DRUG MONITORING REPORT IN PATIENT FRANCES: Not Applicable Referrals: Arnaldo Alvarez MD [Primary Care Provider] - Forms: ED Department Discharge Sepsis Event Note - Evaluation Sepsis Screening Result: No Definite Risk - Focused Exam Vital Signs: Vital Signs Temp Pulse Resp BP Pulse Ox 04/12/19 10:55 37.2 C 82 18 149/69 H 93 L Date Exam was Performed: 04/12/19 Time Exam was Performed: 14:28 - Problem List & Annotations (1) Lower respiratory tract infection SNOMED Code(s): 50517246 Code(s): J22 - UNSPECIFIED ACUTE LOWER RESPIRATORY INFECTION Status: Acute Current Visit: Yes (2) UTI, Urinary tract infectious disease SNOMED Code(s): 22546563 Code(s): N39.0 - URINARY TRACT INFECTION, SITE NOT SPECIFIED Status: Acute Current Visit: Yes Annotation/Comment:: I dosed Levaquin 500 mg today, then begin Levaquin 250 mg tomorrow for a week. Encourage hydration. Change suprapubic catheter today. - Problem List Review Problem List Initiated/Reviewed/Updated: Yes - My Orders Last 24 Hours: My Active Orders 04/12/19 11:48 Chest 1V Frontal [CR] Stat - Assessment/Plan Last 24 Hours: My Active Orders 04/12/19 11:48 Chest 1V Frontal [CR] Stat Plan: Follow up with PCP if needed.
[2019-04-12] MEDS ORDERED: Levofloxacin 500 MG Tab PO ONE (14:33)
[2019-04-12 16:30] VITALS: BP 147/89; PULSE 86
== END 2019-04-12 15:10 | disposition home or self-care (01) ==
LOC: FB.ED 10:39
DX: J22 Unspecified acute lower respiratory infection (principal); N39.0 Urinary tract infection, site not specified; N18.9 Chronic kidney disease, unspecified; M19.90 Unspecified osteoarthritis, unspecified site; F32.9 Major depressive disorder, single episode, unspecified; Z79.899 Other long term (current) drug therapy; Z88.0 Allergy status to penicillin
CPT/HCPCS: 36415; 71045; 80048; 81001; 83605; 85025; 86140; 87804; 99283; A9270